=== PATIENT | male | born 1985 | race Caucasian/White ===

== ENCOUNTER 2017-09-01 07:51 | Observation (INO) | payer OTHER ==
[2017-09-01] MEDS ORDERED: ONDANSETRON 4 MG/2 ML VIAL IVP ONE (08:21)
--- NOTE | 2017-09-01 08:24 | EDPHY ---
H & P Time Seen by Provider: 09/01/17 08:12 HPI/ROS: CHIEF COMPLAINT: Right foot and ankle pain and swelling HISTORY OF PRESENT ILLNESS: 32-year-old male previously healthy presents with right foot and ankle pain. He awoke 4 days ago with pain on the arch of his right foot. The pain was moderate and increased with ambulation. Since then he has continued to have gradually increasing foot and ankle pain. The pain is now severe and unrelenting. Associated with difficulty walking and gradually increasing swelling. No fever. He does not think he stepped on anything and no known trauma or bug bite. REVIEW OF SYSTEMS: Constitutional: No fever, no chills Eyes: No visual changes ENT: No sore throat Respiratory: No cough, no shortness of breath Cardiac: No chest pain Gastrointestinal: no vomiting, no abdominal pain Genitourinary: no dysuria Musculoskeletal: No calf pain or swelling Skin: No rash Neurological: No headache, no weakness Psychiatric: No anxiety Past Medical/Surgical History: Denies Social History: No drug use Smoking Status: Current every day smoker Physical Exam: General Appearance: Alert, pleasant Eyes: Pupils equal and round, no conjunctival pallor or injection ENT, Mouth: Mucous membranes moist Neck: Normal inspection Respiratory: Lungs are clear to auscultation Cardiovascular: Regular rate and rhythm Gastrointestinal: Abdomen is soft and nontender Neurological: A&O, nonfocal, normal gait Skin: Warm and dry Extremities: Right lower extremity-tenderness and swelling over the medial and lateral malleolus and dorsum of the foot, as well as the plantar aspect, associated with faint overlying erythema over the midfoot. There is a localized area of fluctuance, without overlying erythema on the dorsum of the midfoot, approximately 3 cm in diameter. Diffuse ankle swelling without erythema; painful ROM of ankle, but has full ROM; no tenderness over achilles tendon or in calf. Psychiatric: Mood and affect normal Constitutional: Initial Vital Signs Temperature (C) 36.5 C 09/01/17 07:52 Heart Rate 96 09/01/17 07:52 Respiratory Rate 18 09/01/17 07:52 Blood Pressure 200/116 H 09/01/17 07:52 O2 Sat (%) 98 09/01/17 07:52 O2 Delivery Mode Room Air Allergies/Adverse Reactions: No Known Allergies Allergy (Verified 09/01/17 07:51) Home Medications: Medication Instructions Recorded Ibuprofen [Motrin (*)] 200 mg PO DAILY PRN 09/01/17 Methylphenidate HCl 20 mg PO BID@,09/01/17 [Methylphenidate HCl ER] Methylphenidate HCl [Ritalin 20mg 20 mg PO TID@09,12,17 09/01/17 (*)] Medical Decision Making - Diagnostics Imaging Results: Imaging Impressions Ankle X-Ray 09/01/17 08:20 Impression: 1. Lateral ankle sprain. No underlying osseous abnormality seen. 2. Normal right foot series. Foot X-Ray 09/01/17 08:20 Impression: 1. Lateral ankle sprain. No underlying osseous abnormality seen. 2. Normal right foot series. Lower Extremity MRI 09/01/17 08:51 Impression: 1. Dorsal cellulitis throughout the midfoot, without evidence of abscess. 2. Moderate ankle joint effusion with synovitis. Results called to Dr. Landy Guevara at 12:00 PM. Procedures: Procedure: Arthrocentesis. Indication: Evaluation for the possibility of septic joint. Risks, benefits, alternatives of the procedure were discussed with the patient and consent obtained. The patient was prepped and draped in the usual sterile fashion over the right ankle joint. Local anesthesia was provided with 1% lidocaine. The joint space was entered with a 18 gauge needle and no fluid was obtained. The procedure was performed by myself. ED Course/Re-evaluation: Clinical presentation concerning for foot abscess +/- foreign body. Faint skin erythema, concerning for associated cellulitis. X-ray reveals no evidence of foreign body. MRI of the foot/ankle ordered to rule out deep infection of the foot, given onset of pain in arch of foot, but now with a focal area of tenderness and fluctuance on dorsal aspect of foot and ankle pain/swelling. In addition, blood pressure is quite elevated, likely secondary to pain. Will attempt to get pain under control and if the hypertension persists, will treat with antihypertensives. MRI results reveal cellulitis as well as fluid within the ankle joint. Repeat exam- pain with ROM of ankle, but able to bear weight and walk. Query septic arthritis, though I would expect more pain. Will hold abx pending arthrocentesis. Arthrocentesis performed by me revealed no fluid. Discussed with Dr. Sergio Montana, will plan for ultrasound-guided arthrocentesis of the right ankle joint. Will hold antibiotics until arthrocentesis is performed in order to obtain an accurate gram stain/culture. The hospitalist service was consulted for admission. BP 171/104 at 3pm, will continue to observe. Ancef 1 gm IV ordered to be given after arthrocentesis. Pt stable throughout, repeat exams unchanged. Required IV narcotics for pain control. Differential Diagnosis: Differential diagnosis includes though it is not limited to fracture, dislocation, tendon disruption, neurovascular compromise. - Data Points Laboratory Results: Laboratory Results 09/01/17 08:50 09/01/17 08:50 09/01/17 09/01/17 08:50 08:50 WBC 14.29 10^3/uL H 10^3/uL (3.80-9.50) RBC 5.39 10^6/uL 10^6/uL (4.40-6.38) Hgb 15.6 g/dL g/dL (13.7-17.5) Hct 47.0 % % (40.0-51.0) MCV 87.2 fL fL (81.5-99.8) MCH 28.9 pg pg (27.9-34.1) MCHC 33.2 g/dL g/dL (32.4-36.7) RDW 13.1 % % (11.5-15.2) Plt Count 296 10^3/uL 10^3/uL (150-400) MPV 9.3 fL fL (8.7-11.7) Neut % (Auto) 68.6 % % (39.3-74.2) Lymph % (Auto) 16.4 % % (15.0-45.0) [place] % (Auto) 10.7 % % (4.5-13.0) Eos % (Auto) 3.4 % % (0.6-7.6) Baso % (Auto) 0.6 % % (0.3-1.7) Nucleat RBC Rel Count 0.0 % % (0.0-0.2) Absolute Neuts (auto) 9.81 10^3/uL H 10^3/uL (1.70-6.50) Absolute Lymphs (auto) 2.34 10^3/uL 10^3/uL (1.00-3.00) Absolute Monos (auto) 1.53 10^3/uL H 10^3/uL (0.30-0.80) Absolute Eos (auto) 0.48 10^3/uL H 10^3/uL (0.03-0.40) Absolute Basos (auto) 0.09 10^3/uL 10^3/uL (0.02-0.10) Absolute Nucleated RBC 0.00 10^3/uL 10^3/uL (0-0.01) Immature Gran % 0.3 % % (0.0-1.1) Immature Gran # 0.04 10^3/uL 10^3/uL (0.00-0.10) ESR Pending Sodium 143 mEq/L mEq/L (135-145) Potassium 4.4 mEq/L mEq/L (3.5-5.2) Chloride 106 mEq/L mEq/L (97-110) Carbon Dioxide 25 mEq/l mEq/l (22-31) Anion Gap 12 mEq/L mEq/L (8-16) BUN 16 mg/dL mg/dL (7-23) Creatinine 1.1 mg/dL mg/dL (0.7-1.3) Estimated GFR > 60 Glucose 90 mg/dL mg/dL (70-100) Calcium 10.1 mg/dL mg/dL (8.5-10.4) Medications Given: Acetaminophen (Tylenol) 1,000 mg PO Q8 GT Stop: 02/28/18 16:44 Last Admin: 09/01/17 17:54 Dose: 1,000 mg Hydromorphone HCl (Dilaudid) 1 mg IVP Q2HRS PRN PRN Reason: Pain, Severe Unable to Take PO Last Admin: 09/01/17 12:38 Dose: 1 mg Hydromorphone HCl (Dilaudid) 0.2 - 0.4 mg IVP Q4HRS PRN PRN Reason: Pain, Severe Unable to Take PO Stop: 09/11/17 16:31 Last Admin: 09/01/17 17:24 Dose: 0.4 mg Lorazepam (Ativan Injection) 0 mg IVP Q1H PRN; Protocol PRN Reason: Alcohol Withdrawal w/IV access Stop: 02/28/18 17:31 Last Admin: 09/01/17 17:55 Dose: 2 mg Methylphenidate HCl (Ritalin) 20 mg PO TID@09,12,17 GT Stop: 09/11/17 16:59 Last Admin: 09/01/17 17:40 Dose: Not Given Discontinued Medications Hydromorphone HCl (Dilaudid) 0.5 mg IVP EDNOW ONE Stop: 09/01/17 10:21 Last Admin: 09/01/17 13:32 Dose: 0.5 mg Morphine Sulfate (Morphine) 6 mg IVP EDNOW ONE Stop: 09/01/17 08:22 Last Admin: 09/01/17 08:45 Dose: 6 mg Ondansetron HCl (Zofran) 4 mg IVP EDNOW ONE Stop: 09/01/17 08:22 Last Admin: 09/01/17 08:45 Dose: 4 mg Departure - Departure Disposition: [facility] Inpatient Acute Clinical Impression: Cellulitis Qualifiers: Site of cellulitis: extremity Site of cellulitis of extremity: lower extremity Laterality: right Qualified Code(s): L03.115 - Cellulitis of right lower limb Condition: Good
[2017-09-01 09:02] LABS: PLATELET COUNT 296 10^3/uL (150-400)
[2017-09-01] MEDS: HYDROmorphONE/DILAUDID 2 MG/ML INJ IVP ONE ×2 (10:25→13:32)
[2017-09-01] MEDS ORDERED: GADOBUTROL 10 ML VIAL IVP ONE (10:30)
[2017-09-01] MEDS ORDERED: HYDROmorphONE/DILAUDID 1 MG/ML INJ IVP PRN (12:05)
[2017-09-01] MEDS ORDERED: HYDROmorphONE/DILAUDID 2 MG/ML INJ ONE ×2 (12:34→13:29)
[2017-09-01] MEDS ORDERED: ONDANSETRON DISINTEGRATING 4 MG TAB PO PRN (16:32)
[2017-09-01] MEDS ORDERED: ONDANSETRON 4 MG/2 ML VIAL IVP PRN (16:32)
[2017-09-01] MEDS ORDERED: oxyCODONE IR 5 MG TAB PO PRN (16:32)
[2017-09-01] MEDS ORDERED: HYDROmorphONE/DILAUDID 2 MG/ML INJ IVP PRN (16:32)
[2017-09-01] MEDS ORDERED: IBUPROFEN 200 MG TAB PO PRN (16:34)
[2017-09-01] MEDS ORDERED: LIDOCAINE 1% 300 MG/30 ML SDV ONE (16:40)
--- NOTE | 2017-09-01 16:59 | GHP ---
[f rep st] HISTORY AND PHYSICAL DATE OF ADMISSION: 09/01/2017 The patient is a 32-year-old gentleman with minimal past medical history who presents with ankle swel ling and pain on the right. He initially stated he woke up with it this morning this way, but then f urther history reveals that actually had pain going back as far as Wednesday which was 3 days prior to admission. He denies antecedent trauma. He has not had fever or chills. He has noticed any signif icant redness over it. He was able to walk this morning. He is describing pain in the dorsum of his foot. Notably, he has a cousin with gout. He does not use IV drugs. REVIEW OF SYSTEMS: Complete 10-point review of systems conducted, negative except as noted in the HP I. PAST MEDICAL HISTORY: ADHD. FAMILY HISTORY: Notable for gout in a cousin. His father had osteomyelitis following a tonsillectom y. SOCIAL HISTORY: No IV drugs. Does smoke cigarettes. Drinks moderate alcohol. 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 ALLERGIES: No known drug allergies. MEDICATIONS: Ritalin and ibuprofen. PHYSICAL EXAMINATION: VITAL SIGNS: Temp 36.5, blood pressure 200/116, pulse 96, breathing 18 times a minute, 98% on room air. GENERAL: No acute distress. HEENT: Sclerae anicteric. Oropharynx kaycee r. Mucous membranes are moist. NECK: Supple without lymphadenopathy or JVD. LUNGS: Clear to ausc ultation bilaterally. HEART: S1, S2. ABDOMEN: Soft, nontender, nondistended. EXTREMITIES: Lower extremities negative edema. His right ankle has a joint effusion. There is minimal warmth. No rosendo thema. There is no lymphangitic streaking. There is no inguinal lymphadenopathy. He is able to [place]. NEUROLOGIC: Nonfocal. SKIN: Without rash. LABORATORIES: White count is elevated at 14.3 with a left shift, hematocrit 47, platelets 296,000. Chem 7 normal. X-ray interpreted by me shows lateral ankle sprain with no underlying osseous abnormality. An MRI sh ows cellulitis in the dorsum of his foot as well as a moderate size joint effusion with synovitis. I have discussed the case Dr. Dominic Echavarria of Radiology. ASSESSMENT/PLAN: A 32-year-old man with a swollen right ankle. 1. Right ankle: It is not clear that this represents a septic joint. The patient has pain with pas sive movement but is able to tolerate and he is able to walk. He does not have fever. He does not h ave overlying redness. I think joint aspiration is important, and I spoke with Radiology who will do it. I will order the fluids now. I will also order crystals as I think this patient is at risk for gout. 2. Cellulitis: The patient clinically does not have cellulitis. I will hold off on antibiotics pen ding. 3. Hypertension: I suspect this is secondary. He has been told he has had high blood pressure in t he past. Will follow. Will not treat it now. 4. Attention deficit hyperactivity disorder: Continue his medicines. 5. Prophylaxis: Pharmacologic prophylaxis probably not necessary given his age and his ambulatory s tatus. 6. Pain: Will give him some IV and oral pain medications. He seems pretty uncomfortable. DISPOSITION: Inpatient status. /[id number]/MODL
--- NOTE | 2017-09-01 17:18 | PDRADPN ---
Radiology Procedure Note Date of Procedure: 09/01/17 Radiologist: Dominic Echavarria Anesthesia: Local (Specify) Pre-op Diagnosis: ankle effusion Post-op Diagnosis: same Indication: r/o septic/crystal arthritis Procedure: US guided L ankle arthrocentesis Finding(s): straw colored fluid Inf/Abcess present in the surg proc area at time of surgery?: No Depth: Deep Incisional (Fascial) EBL: Minimal Complications: none Specimen(s): 5-6mL submitted
[2017-09-01] MEDS ORDERED: LORazepam 2 MG/ML INJ IVP PRN (17:32)
[2017-09-01] MEDS ORDERED: LORazepam 1 MG TAB PO PRN (17:32)
[2017-09-01] MEDS: ACETAMINOPHEN 500 MG TAB PO SCH ×2 (17:54→22:19)
[2017-09-01 19:33] VITALS: RESP 16
[2017-09-02 03:16] VITALS: O2SAT 97
[2017-09-02] MEDS: ACETAMINOPHEN 500 MG TAB PO SCH (05:26)
[2017-09-02 05:39] LABS: PLATELET COUNT 242 10^3/uL (150-400)
--- NOTE | 2017-09-02 07:37 | PDMN ---
Medical Necessity Medical necessity: GRG musculoskeletal disease: transient synovitis L ankle and foot 1 day- M67.372- associated surgical procedure ( drainage) , IV pain meds, : MRI shows dorsal cellulitis throughout midfoot, Mod. ankle joint effusion with synovitis: procedure: US guided L ankle arthrocentesis : r/ o septic/crystal arthritis
[2017-09-02 07:38] VITALS: BP 141/102; PULSE 68; TEMP 97.8
[2017-09-02] MEDS ORDERED: METHYLPHENIDATE HCL 20 MG PO SCH (09:00)
--- NOTE | 2017-09-02 09:40 | ASMTCMCOM ---
CM Note CM Note Notes: Patient admitted for foot pain. He had an ultrasound guided arthrocentesis which will be used to rule out septic/crytal arthritis. He is also exhibiting hypertension, which may be secondary to his pain. This will be monitored. Patient is normally independent, lives alone, and is employed. PT has been ordered, so Case Management will follow in the event that he has discharge needs. Date Signed: 09/02/2017 09:40 AM Electronically Signed By:Shirley Fall RN
--- NOTE | 2017-09-02 11:01 | HOSPPROG ---
Hospitalist Progress Note Assessment/Plan: 32 yo M w ankle sprain, htn home today > 30 minutes Subjective: fluid studies not c/w infection or gout Objective: Vital Signs Temp Pulse Resp BP Pulse Ox 36.6 C 68 16 141/102 H 97 09/02/17 07:37 09/02/17 07:37 09/02/17 07:37 09/02/17 07:37 09/02/17 07:37 Microbiology 09/01/17 17:00 Gram Stain - Final Synovial Fluid - Aspirate Laboratory Results 09/02/17 05:02 09/02/17 05:02 09/01/17 09/02/17 09/03/17 05:59 05:59 05:59 Intake Total 1300 Balance 1300 - Physical Exam Constitutional: no apparent distress, appears nourished Eyes: PERRL, anicteric sclera Ears, Nose, Mouth, Throat: moist mucous membranes, hearing normal Cardiovascular: regular rate and rhythym, no murmur, rub, or gallop Respiratory: no respiratory distress, no rales or rhonchi Gastrointestinal: normoactive bowel sounds, soft, non-tender abdomen Genitourinary: no bladder fullness, No howard in urethra Skin: warm, normal color Musculoskeletal: full muscle strength Neurologic: AAOx3 ICD10 Worksheet Patient Problems: Problems Problem Status Onset Cellulitis Acute
--- NOTE | 2017-09-02 11:22 | GDS ---
[f rep st] DISCHARGE SUMMARY DISCHARGE DIAGNOSIS: 1. Ankle sprain. 2. Heavy alcohol use. 3. Hypertension. Please see admission history and physical by Dr. Isaac Lackey. The patient presented with swelling and pain over his right ankle. He denied a history of trauma. He had an arthrocentesis showing no crystals and no evidence of infection. Inflammatory markers were sent and were unremarkable. Patient was hypertensive as high as about 200/ 100. He did ultimately endorse drinking a fair amount of alcohol, about a 12 pack a day. He receive d a little bit of Ativan for mild alcohol withdrawal symptoms on the first hospital day. The patient was doing well. The presumed mechanism of injury was an ankle sprain he does not recall. He had thao ging confirming sprain without fracture. He is discharged home. /[id number]/MODL
== END 2017-09-02 11:39 | disposition home or self-care (01) ==
LOC: INTOOBSV 12:11 → F3E 16:11
PROVIDERS: ADMIT Internal Medicine; ATTEND Internal Medicine
PROC: 0S9G3ZX Drainage of Left Ankle Joint, Percutaneous Approach, Diagnostic (ICD-10-PCS; principal; 2017-09-01)
DX: S93.401A Sprain of unspecified ligament of right ankle, initial encounter (principal); M25.471 Effusion, right ankle; X58.XXXA Exposure to other specified factors, initial encounter
CPT/HCPCS: 20606; 73600; 73630; 73720; 76942; 96374; 96375; 97161; 99285; G0378; A9585; J1170; J2060; J2270; J2405

== ENCOUNTER 2018-04-11 21:25 | Emergency (ER) | payer OTHER ==
[2018-04-11 21:34] VITALS: BP 160/99
[2018-04-11] MEDS ORDERED: TDAP ADULT 0.5 ML INJ (BOOSTRIX) IM ONE (21:44)
--- NOTE | 2018-04-11 21:46 | EDPHY ---
H & P Stated Complaint: lac left hand Time Seen by Provider: 04/11/18 21:43 HPI/ROS: HPI: This is a 33-year-old male who presents with Chief Complaint: Laceration left hand Location: Left hand Quality: Laceration Duration: Prior to arrival Signs and Symptoms: + bleeding, no radiation, no numbness, no weakness, no tingling, no incontinence, no decreased range of motion, no swelling, + pain, no fever Timing: Acute Severity: [id number] Context: Patient is right-hand dominant, presents with accidentally cutting pointer finger knuckle on a hatchet while cutting wood this evening. He reports that he felt immediate, mild, nonradiating pain. The area started to bleed so he applied gauze bandaging. He denies any decreased range of motion, radiation, weakness. He is unsure of his tetanus status. Patient admits to drinking alcohol this evening. Comment: ROS: A comprehensive 10 system review of systems is otherwise negative aside from elements mentioned in the history of present illness. MEDICAL/SURGICAL/SOCIAL HISTORY: Medical history: ADD, hypertension Surgical history: Appendectomy Social history: Employed. Smoker. CONSTITUTIONAL: Slightly anxious adult white male, awake and alert, no obvious distress HEENT: Atraumatic and normocephalic. NECK: supple EXTREMITIES: 2/2 pulses, strength 5/5, 2 and 0.5 cm vertical superficial laceration noted to 2nd digit/pointer finger MCP. DIP/PIP/MCP flexion/extension intact with good light touch sensation. no deformities, no clubbing, no cyanosis or edema. NEUROLOGICAL: no focal neuro deficits. GCS 15. Light touch sensation intact. SKIN: Warm and dry, no erythema. no rash. Good capillary refill. Source: Patient Exam Limitations: No limitations - Personal History Current Tetanus Diphtheria and Acellular Pertussis (TDAP): Unsure - Medical/Surgical History Hx Asthma: No Hx Chronic Respiratory Disease: No Hx Diabetes: No Hx Cardiac Disease: No Hx Renal Disease: No Hx Cirrhosis: No Hx Alcoholism: No Hx HIV/AIDS: No Hx Splenectomy or Spleen Trauma: No Other PMH: appy, possible hypertension, ADD - Social History Smoking Status: Current every day smoker Constitutional: Initial Vital Signs Temperature (C) 36.9 C 04/11/18 21:32 Heart Rate 103 H 04/11/18 21:32 Respiratory Rate 20 10/15/18 21:32 Blood Pressure 160/99 H 04/11/18 21:32 O2 Sat (%) 97 04/11/18 21:32 Allergies/Adverse Reactions: No Known Allergies Allergy (Verified 04/11/18 21:32) Home Medications: Medication Instructions Recorded Ibuprofen [Motrin (*)] 200 mg PO DAILY PRN 09/01/17 Methylphenidate HCl 20 mg PO BID@,12 09/01/17 [Methylphenidate HCl ER] Methylphenidate HCl [Ritalin 20mg 20 mg PO TID@09,12,17 09/01/17 (*)] Lisinopril 5 mg PO DAILY #30 tablet 09/02/17 Medical Decision Making Procedures: Procedure: Laceration repair. Verbal consent was obtained from the patient. The simple, linear, 3.5 cm laceration on the left pointer finger MCP was anesthetized in the usual fashion using 5 mL of 0.5% bupivacaine. The wound was irrigated, draped and explored to its base with a gloved finger. There were no deep structures involved. No tendon injury was identified. The wound was repaired with #5, 5 0 Prolene. Good hemostasis achieved and patient tolerated procedure well. The procedure was performed by myself. ED Course/Re-evaluation: No signs reviewed and show mild tachycardia. Local anesthesia provided. Tetanus booster given. Laceration repaired with 5-0 Prolene. Clean sterile dressing applied. Verbal and written wound care instructions provided. No signs of neurovascular compromise/tenting of skin/compartment syndrome/ extremities and joints examined above and below area of concern and are neurovascularly intact/tendon injury. This patient was seen under the supervision of my secondary supervising physician. I evaluated care for this patient independently. Discussed this patient with Dr. Guevara. Differential Diagnosis: Differential diagnosis includes but is not limited to phalanx fracture, medical carpal fracture, tendon injury, nerve injury, laceration. - Data Points Medications Given: Discontinued Medications Diphtheria/Tetanus/Acell Pertussis (Boostrix) 0.5 ml IM .ONCE ONE Stop: 04/11/18 21:45 Last Admin: 04/11/18 21:56 Dose: 0.5 ml Departure - Departure Disposition: Home, Routine, Self-Care Clinical Impression: Laceration of left hand without complication, including fingers Qualifiers: Encounter type: initial encounter Qualified Code(s): S61.412A - Laceration without foreign body of left hand, initial encounter Condition: Good Instructions: Care For Your Stitches (ED), Laceration (ED) Additional Instructions: Keep the dressing dry and in place for 48 hours. After 48 hours, you may remove the dressing; wash the site daily with mild soap and water; then pat dry. Take Tylenol 650 mg every 4 hours and/or Ibuprofen 600 mg every 8 hours with food as needed for pain. Do not soak hands in a bath tub or swim until sutures are removed. Wound Care Follow-Up: Removal of sutures in [7-10] days. Suture removal is complimentary in uncomplicated cases. Infection or abnormal findings would require reevaluation by the MD. In that case, you may be billed. Return to the ER immediately if you experience redness, red streaks, have fevers /chills, flu like symptoms, limited range of motion, or any other symptoms that concern you. Referrals: [facility],. [Clinic] - Follow Up Only If Needed
== END 2018-04-11 22:19 | disposition home or self-care (01) ==
PROC: 0HQGXZZ Repair Left Hand Skin, External Approach (ICD-10-PCS; principal; 2018-04-11)
DX: S61.412A Laceration without foreign body of left hand, initial encounter (principal); W26.8XXA Contact with other sharp object(s), not elsewhere classified, initial encounter; F17.200 Nicotine dependence, unspecified, uncomplicated